=== PATIENT | female | born 1935 | race Caucasian/White ===

== ENCOUNTER → 2016-12-22 | Outpatient (CLI) | payer MEDICARE, BC ==
[~2016-12-22] MED LIST: ASPIRIN PO; ASPIRIN81 M2 PO; ASPIRINEC PO; ATACAND HCT 32/1 TAB PO; ATACAND PO; CALTRATE PLUS T1 TAB PO; CELEBREX PO; CELEXA PO; CIPRO PO; CIPRO250 MG PO; COLACE PO; DARVOCET-N 1001 TAB PO; DICLOFENAC PO; FLEXERIL PO; FLEXERIL10 MG PO; FLONASE16 GM; HUMIBID L.1 TAB.SR . PO; HYDROCODON-ACE1 EAC7 PO; LEVAQUIN PO; LEXAPRO PO; LIPITOR PO; LOCOID 0.1% LIP45 GM PO; METOPROLOL SUCC50 MG PO; MIACALCIN4 ML; MILK OF MAGNESIA PO; MSM; NEXIUM PO; OSTEO BI-FLEX1 EAC1 PO; OSTEO BIFLEX; PERCOCET 5-3251 TAB PO; PHENERGAN PO; PRAVACHOL PO; PREDNISONE PO; PREMARIN PO; PRILOSEC PO; PRILOSEC2.5 MG PO; PRILOSEC20 M1 PO; PROTONIX PO; ROBITUSSIN A-C S5 ML PO; TAMIFLU75 M1 PO; TOPROL XL PO; VICODIN 5/500 T1 TAB PO; VOLTAREN75 MG PO; ZOCOR PO; ZOFRAN ODT4 MG PO
--- NOTE | ~2016-12-22 | MY11 ---
[facility] A Service [facility] RADIOLOGY TEXT RESULTS PATIENT: ROSSY SMITH LOCATION: [facility] : 35 UNIT #: [id number] AGE: [address]: Gerardo Muir MD SEX: F ORDER DR: [id number] [place] [id number] O MR#: [id number] Acc #: [id number] NAME: ROSSY SMITH : 1935 SEX: F STUDY DATE/TIME: 12/22/2016 13:16 UNIT: [facility] ROOM: STUDY DESCRIPTION: MY Mammogram Screening Dig [place] Attending Physician: Gerardo Muir M.D. Referring Physician: Gerardo Muir M.D. Ordering Physician: Gerardo Muir M.D. Primary Care Physician: Gerardo Muir M.D. MEDICAL IMAGING REPORT This report is preliminary unless electronic signature is present. EXAM Digital screening mammogram, 12/22/2016, [facility]. HISTORY 81-year-old woman no risk elevation. Previous right breast biopsy. Annual screen. COMPARISON Mammograms date to 01/27/2008 with most recent screening comparison 10/15/2015. TECHNIQUE Digital imaging of each breast was completed utilizing screening protocol. Review includes FDA-approved CAD device. FINDINGS Breast parenchyma is fatty replaced. Vascular calcification is noted as well as secretory calcification. Secretory calcifications are dominant in the inner hemisphere of the left breast and stable. I see no suspicious mass. There are no suspicious microcalcifications and no architectural deformity. IMPRESSION Stable benign mammogram. Annual screening recommended. Patients over the age of 40 are entered into a reminder system with target due date for the next mammogram. A result letter will also be sent to the patient. BIRADS: [address] [facility] A Service [facility] RADIOLOGY TEXT RESULTS PATIENT: ROSSY SMITH LOCATION: [facility] : 35 UNIT #: [id number] AGE: [address]: Gerardo Muir MD SEX: F ORDER DR: Dictated by... Jose Miguel Brown M.D. THIS IS AN ELECTRONICALLY VERIFIED REPORT Jose Miguel Brown M.D. at 12/22/2016 3:48 PM PEDRITO/earnest TD: 12/22/2016 14:34 JOB #: [id number] MEDICAL IMAGING REPORT Page 1 of 1
== END | disposition home or self-care (01) ==
LOC: CWCC 12-15 12:45 → SMAM 12-15 13:00
DX: Z12.31 Encounter for screening mammogram for malignant neoplasm of breast (principal); Z98.890 Other specified postprocedural states
CPT/HCPCS: G0202

== ENCOUNTER 2017-02-25 10:15 | Emergency (ER) | payer MEDICARE, BC ==
--- NOTE | ~2017-02-25 | CR282 ---
[facility]. [facility] A Service of [facility] & [facility] RADIOLOGY TEXT RESULTS PATIENT: ROSSY SMITH LOCATION: SED : 35 UNIT #: [id number] AGE: [address]: ANTON CENTENO PA-C SEX: F ORDER DR: [id number] [address] [id number] E MR#: [id number] Acc #: [id number] NAME: ROSSY SMITH : 1935 SEX: F STUDY DATE/TIME: 02/25/2017 10:44 UNIT: SED ROOM: STUDY DESCRIPTION: CR Wrist Min 3 View Rt Attending Physician: Anton Centeno Pa-C Ordering Physician: Anton Centeno Pa-C Primary Care Physician: Gerardo Muir M.D. MEDICAL IMAGING REPORT This report is preliminary unless electronic signature is present. EXAM Right wrist 3 views HISTORY Fell on concrete 2 weeks ago. Pain in anatomical snuffbox. FINDINGS 3 views of the right wrist demonstrates no acute fracture or dislocation. Advanced arthritic changes seen at the scaphotrapezial joint and also at the first CMC joint. There is mild radial subluxation of the first metacarpal. No erosions identified. Carpal alignment appears anatomic. Arthritic changes are also seen at the second CMC joint. There are advanced arthritic changes at the IP joint of the thumb. Mild scapholunate interval widening could represent a scapholunate tear but no evidence of carpal instability. Mild arthritic change is also seen at the radiocarpal joint and a small amount of chondrocalcinosis in the region of the TFCC. IMPRESSION 1. No definite acute fracture or dislocation. 2. Advanced arthritic changes of the scaphotrapezial joint, first and second carpometacarpal joints, and also at the IP joint of the thumb. Additionally, noted are arthritic changes at the second and fifth MCP joints. 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 3. There is mild widening of the scapholunate interval that could indicate scapholunate tear but no evidence of carpal instability. 4. Degenerative changes radiocarpal joint with probable degenerative cyst distal radius and a small amount of chondrocalcinosis. Dictated by... [facility] A Service of [facility] & [facility] RADIOLOGY TEXT RESULTS PATIENT: ROSSY SMITH LOCATION: SED : 35 UNIT #: [id number] AGE: [address]: ANTON CENTENO PA-C SEX: F ORDER DR: Christy Perez M.D. THIS IS AN ELECTRONICALLY VERIFIED REPORT Christy Perez M.D. at 02/25/2017 5:11 PM Abhijit TD: 02/25/2017 13:48 JOB #: [id number] MEDICAL IMAGING REPORT Page 1 of 1
== END 2017-02-25 12:05 | disposition home or self-care (01) ==
LOC: SED 10:15
DX: M19.031 Primary osteoarthritis, right wrist (principal); I10 Essential (primary) hypertension; F32.9 Major depressive disorder, single episode, unspecified; Z79.899 Other long term (current) drug therapy; Z79.82 Long term (current) use of aspirin; Z88.0 Allergy status to penicillin; Z88.1 Allergy status to other antibiotic agents; Z88.5 Allergy status to narcotic agent; Z88.2 Allergy status to sulfonamides; Z88.8 Allergy status to other drugs, medicaments and biological substances; W01.0XXA Fall on same level from slipping, tripping and stumbling without subsequent striking against object, initial encounter; Y92.009 Unspecified place in unspecified non-institutional (private) residence as the place of occurrence of the external cause
CPT/HCPCS: 29125; 73110; 99283

== ENCOUNTER → 2017-03-02 | Outpatient (CLI) | payer MEDICARE, BC ==
[2017-03-02 12:09] LABS: CALCIUM SERUM 9.5 mg/dL (8.4-10.2); CREATININE SERUM 0.8 mg/dL (0.6-1.4); GLOM FILT RATE Estimated 69.2 mL/min (>60)
== END | disposition home or self-care (01) ==
LOC: CSSDAY 10:57
PROVIDERS: Family Medicine
DX: M81.0 Age-related osteoporosis without current pathological fracture (principal)
CPT/HCPCS: 36415; 82310; 82565; 96365; J3489